=== PATIENT | female | born 1975 | race Two or more races ===

== ENCOUNTER → 2017-02-09 | Outpatient (CLI) | payer BC ==
--- NOTE | 2017-02-09 13:16 | US ---
EXAMINATION TYPE: US thyroid st tissue head/neck DATE OF EXAM: 02/09/2017 COMPARISON: NONE CLINICAL HISTORY: E07.9 Disorder of thyroid, unspecified. Pt states possible thyroid enlargement felt by physician GLAND SIZE: Right Lobe: 6.1 x 1.9 x 1.8 cm Overall Parenchyma: heterogenous Left Lobe: 5.1 x 1.9 x 1.9 cm Overall Parenchyma: heterogeneous Isthmus Thickness: 0.4 cm NODULES RIGHT: # of nodules measured on right: 0 LEFT: # of nodules measured on left: 1 1. 1.9 X 1.5 x 1.3 cm isoechoic solid nodule at the lower pole with well-defined margins;This nodul e is wider than tall and shows intranodular vascularity. Prior size: No prior ISTHMUS: # of nodules measured in the isthmus: 0 Bilateral neck scanned, no evidence of lymphadenopathy. Enlarged, heterogeneous thyroid with nodule o n Left IMPRESSION: 1. There is a 1.9 cm solid nodule left lobe thyroid. 2. Correlate for thyroiditis and thyromegaly.
== END | disposition home or self-care (01) ==
LOC: RADUSWWP 12:52
PROVIDERS: ATTEND Family Medicine
DX: E04.1 Nontoxic single thyroid nodule (principal)
CPT/HCPCS: 76536

== ENCOUNTER → 2017-03-15 | Outpatient (CLI) | payer BC ==
--- NOTE | 2017-03-16 11:35 | NM ---
EXAMINATION TYPE: NM thyroid image w uptake DATE OF EXAM: 03/16/2017 COMPARISON: NONE HISTORY: Thyroid nodule TECHNIQUE: After the intravenous administration of 10.88 mCi Tc 99m Sodium Pertechnetate, thyroid susana ging is performed 10 minutes post injection. Thyroid iodine uptake is calculated after the oral admin istration of 16.7 uCi I-131 capsule. FINDINGS: There is normal distribution of activity throughout the gland. The 4 hour iodine uptake is calculated at 13.9% (normal range 8-14%). The 24-hour iodine uptake is calculated at 30.5% (normal r alicja 15-35%). Scintigraphic evaluation of the thyroid gland demonstrates a cold defect lower pole left thyroid lobe which corresponds to the sonographic abnormality. Tissue diagnosis is recommended. Thyroid lobes are otherwise homogeneous. IMPRESSION: 1. 4 and 24-hour uptake is within normal range. 2. Cold defect lower pole left thyroid lobe. Biopsy is recommended.
== END | disposition home or self-care (01) ==
LOC: RADNMMAIN 10:34
PROVIDERS: ATTEND Family Medicine
DX: E04.1 Nontoxic single thyroid nodule (principal)
CPT/HCPCS: 78014; A9528; A9512

== ENCOUNTER → 2017-11-28 | Outpatient (CLI) | payer BC ==
--- NOTE | 2017-11-29 07:48 | MM ---
Reason for exam: screening (asymptomatic). Baseline mammogram. History: Family history of breast cancer in aunt. Took hormonal contraceptives beginning at age 21. Physical Findings: Nurse did not find any significant physical abnormalities on exam. MG 3D Screening Mammo W/Cad Bilateral CC and MLO view(s) were taken. The breast tissue is heterogeneously dense. This may lower the sensitivity of mammography. Focal asymmetry left upper quadrant, probably benign. Short term follow up recommended. These results were verbally communicated with the patient and result sheet given to the patient on 11/28/17. ASSESSMENT: Probably benign, BI-RAD 3 RECOMMENDATION: Follow-up diagnostic mammogram of the left breast in 6 months.
== END | disposition home or self-care (01) ==
LOC: RADMAMWWP 15:49
PROVIDERS: ATTEND Obstetrics & Gynecology
DX: Z12.31 Encounter for screening mammogram for malignant neoplasm of breast (principal)
CPT/HCPCS: 77063; 77067

== ENCOUNTER → 2018-06-07 | Outpatient (CLI) | payer BC ==
--- NOTE | 2018-06-07 14:27 | MM ---
Reason for exam: follow-up at short interval from prior study. Last mammogram was performed 6 months ago. History: Family history of breast cancer in aunt. Took hormonal contraceptives beginning at age 21. Physical Findings: Nurse did not find any significant physical abnormalities on exam. MG 3D Diag Mammo W/Cad LT CC and MLO view(s) were taken of the left breast. Prior study comparison: November 28, 2017, bilateral MG 3d screening mammo w/cad. The breast tissue is heterogeneously dense. This may lower the sensitivity of mammography. Asymmetric breast tissue left outer quadrant is stable. These results were verbally communicated with the patient and result sheet given to the patient on 06/07/18. ASSESSMENT: Negative, BI-RAD 1 RECOMMENDATION: Return to routine screening mammogram schedule for both breasts. Back on schedule.
== END | disposition home or self-care (01) ==
LOC: RADMAMWWP 13:15
PROVIDERS: ATTEND Obstetrics & Gynecology
DX: R92.8 Other abnormal and inconclusive findings on diagnostic imaging of breast (principal)
CPT/HCPCS: 77061; 77065

== ENCOUNTER → 2019-08-29 | Outpatient (CLI) | payer BC ==
--- NOTE | 2019-09-02 09:37 | MM ---
Reason for exam: screening (asymptomatic). Last mammogram was performed 1 year and 3 months ago. History: Family history of breast cancer in aunt. Took hormonal contraceptives beginning at age 21. Physical Findings: A clinical breast exam by your physician is recommended on an annual basis and results should be correlated with mammographic findings. MG 3D Screening Mammo W/Cad Bilateral CC and MLO view(s) were taken. Prior study comparison: June 07, 2018, left breast MG 3d diag mammo w/cad LT. November 28, 2017, bilateral MG 3d screening mammo w/cad. The breast tissue is heterogeneously dense. This may lower the sensitivity of mammography. Enlarging 1.8cm nodule 8 o'clock central posterior right breast. 3D images suggest low density with circumscribed margins. ASSESSMENT: Incomplete: need additional imaging evaluation, BI-RAD 0 RECOMMENDATION: Special view mammogram and ultrasound of the right breast. (3D) [facility] will attempt to contact patient to return for supplemental views and ultrasound.
== END | disposition home or self-care (01) ==
LOC: RADMAMWWP 13:13
PROVIDERS: ATTEND Family Medicine
DX: Z12.31 Encounter for screening mammogram for malignant neoplasm of breast (principal)
CPT/HCPCS: 77063; 77067

== ENCOUNTER → 2019-09-10 | Outpatient (CLI) | payer BC ==
--- NOTE | 2019-09-10 10:55 | MM ---
Reason for exam: additional evaluation requested from abnormal screening. Last mammogram was performed less than 1 month ago. History: Family history of breast cancer in aunt. Took hormonal contraceptives beginning at age 21. Physical Findings: Nurse did not find any significant physical abnormalities on exam. MG 3D Work Up W/Cad RT Spot compression CC, spot compression MLO, and LM view(s) were taken of the right breast. Prior study comparison: August 29, 2019, bilateral MG 3d screening mammo w/cad. June 07, 2018, left breast MG 3d diag mammo w/cad LT. The breast tissue is heterogeneously dense. This may lower the sensitivity of mammography. 1.4cm mass appears inferior on LM and lateral on the screening. These results were verbally communicated with the patient and result sheet given to the patient on 09/10/19. ASSESSMENT: Incomplete: need additional imaging evaluation, BI-RAD 0 RECOMMENDATION: Ultrasound of the right breast. (lower outer quadrant)
--- NOTE | 2019-09-10 10:56 | USB ---
Reason for exam: additional evaluation requested from abnormal screening. History: Family history of breast cancer in aunt. Took hormonal contraceptives beginning at age 21. US Breast Workup Limited RT Technologist: Siena Griffin Right limited breast ultrasound including focal area of concern, retroareolar and axilla demonstrates a 1.3 x 1.0 x 0.4cm oval, cystic lesion at 8 o'clock, corresponds to mammographic finding. These results were verbally communicated with the patient and result sheet given to the patient on 09/10/19. ASSESSMENT: Benign, BI-RAD 2 RECOMMENDATION: Return to routine screening mammogram schedule for both breasts.
== END | disposition home or self-care (01) ==
LOC: RADMAMWWP 08:54
PROVIDERS: ATTEND Family Medicine
DX: R92.8 Other abnormal and inconclusive findings on diagnostic imaging of breast (principal)
CPT/HCPCS: 77061; 77065

== ENCOUNTER → 2020-11-04 | Outpatient (CLI) | payer BC ==
--- NOTE | 2020-11-04 13:26 | MM ---
Reason for exam: additional evaluation requested from prior study. Last mammogram was performed 1 year and 2 months ago. History: Took hormonal contraceptives beginning at age 21. Physical Findings: Nurse did not find any significant physical abnormalities on exam. MG 3D Diag Mammo W/Cad ASHUTOSH Bilateral CC and MLO view(s) were taken. Prior study comparison: September 10, 2019, right breast MG 3d work up w/cad RT. August 29, 2019, bilateral MG 3d screening mammo w/cad. The breast tissue is heterogeneously dense. This may lower the sensitivity of mammography. There is chronic nodularity in the right breast. Left upper outer quadrant focal asymmetry is unchanged. These results were verbally communicated with the patient and result sheet given to the patient on 11/04/20. ASSESSMENT: Incomplete: need additional imaging evaluation, BI-RAD 0 RECOMMENDATION: Ultrasound of the right breast. (as ordered)
--- NOTE | 2020-11-04 13:27 | USB ---
Reason for exam: additional evaluation requested from prior study. History: Took hormonal contraceptives beginning at age 21. US Breast Limited RT Right limited breast ultrasound including focal area of concern, retroareolar and axilla demonstrates no cystic or solid lesion seen. Scanned 3-8 o'clock. These results were verbally communicated with the patient and result sheet given to the patient on 11/04/20. ASSESSMENT: Benign, BI-RAD 2 RECOMMENDATION: Routine screening mammogram of both breasts in 1 year. Manage on a clinical basis with regard to any suspicious palpable.
== END | disposition home or self-care (01) ==
LOC: RADMAMWWP 08:50
PROVIDERS: ATTEND Family Medicine
DX: N63.10 Unspecified lump in the right breast, unspecified quadrant (principal); R92.8 Other abnormal and inconclusive findings on diagnostic imaging of breast
CPT/HCPCS: 77062; 77066

== ENCOUNTER → 2022-03-31 | Outpatient (CLI) | payer BC ==
--- NOTE | 2022-04-01 08:46 | MM ---
Reason for Exam: Screening (asymptomatic). Last mammogram was performed 1 year(s) and 5 month(s) ago. Patient History: Menarche at age 14. First Full-Term at age 24. Hormonal Contraceptives, from age 21 until age 38. Last menstrual period: 03/16/2022 Risk Values: Radha 5 year model risk: 0.7%. NCI Lifetime model risk: 8.7%. Prior Study Comparison: 08/29/2019 Bilateral Screening Mammogram, [facility]. 09/10/2019 Right Diagnostic Mammogram, [facility]. 11/04/2020 Bilateral Diagnostic Mammogram, [facility]. Tissue Density: The breast tissue is heterogeneously dense. This may lower the sensitivity of mammography. Findings: Analyzed By CAD. Single benign-appearing round calcification in the right breast is redemonstrated. There is no suspicious group of microcalcifications or new suspicious mass in either breast. Overall Assessment: Benign, BI-RAD 2 Management: Screening Mammogram of both breasts in 1 year. A clinical breast exam by your physician is recommended on an annual basis and results should be correlated with mammographic findings. Electronically signed and approved by: Mikal Aguirre M.D.
== END | disposition home or self-care (01) ==
LOC: RADMAMWWP 07:13
PROVIDERS: ATTEND Family Medicine
DX: Z12.31 Encounter for screening mammogram for malignant neoplasm of breast (principal); R92.1 Mammographic calcification found on diagnostic imaging of breast
CPT/HCPCS: 77063; 77067

== ENCOUNTER → 2022-08-09 | Outpatient (CLI) | payer MEDICAID, BC ==
--- NOTE | 2022-08-09 19:12 | MR ---
EXAMINATION TYPE: MR shoulder RT wo con DATE OF EXAM: 08/09/2022 COMPARISON: None. HISTORY: Rt shoulder pain, injury 2 weeks ago. TECHNIQUE: Multiplanar, multisequence imaging of the right shoulder is performed without contrast. FINDINGS: Rotator Cuff: Distal supraspinatus and infraspinatus tendons are intact. Rotator cuff muscle bulk is preserved. Acromioclavicular Joint: Mild to moderate capsular hypertrophy. Mild narrowing. Type II downsloping a cromion noted with loss of underlying fat plane coronal image 17 and sagittal image 9. Glenohumeral Joint: Small joint effusion. No significant spurring. Labrum: The labrum appears grossly intact given limitation of non-arthrogram study. Biceps Tendon: The long head of biceps is in normal location within bicipital groove. Bone marrow signal: Subchondral cystic change involving the lateral aspect of the superior humeral he ad and rotator cuff insertion.. Other: No additional significant abnormality is appreciated. IMPRESSION: No rotator cuff or labral tear is seen. There is type 2 downsloping acromion with suggest ion of underlying impingement. Correlate clinically.
== END | disposition home or self-care (01) ==
LOC: RADMRIMAIN 17:24
PROVIDERS: ATTEND Physician Assistant
DX: S43.91XA Sprain of unspecified parts of right shoulder girdle, initial encounter (principal); S46.001A Unspecified injury of muscle(s) and tendon(s) of the rotator cuff of right shoulder, initial encounter; M75.41 Impingement syndrome of right shoulder

== ENCOUNTER → 2022-12-20 | Outpatient (CLI) | payer BC, MEDICAID ==
[2022-12-20 11:06] LABS: Basophils # (A) 0.04 X 10*3/uL (0.00-0.10); Basophils % (A) 0.6 %; Eosinophils # (A) 0.13 X 10*3/uL (0.04-0.35); Eosinophils % (A) 2.1 %; HCT 37.2 % (37.2-46.3); HGB 11.5 g/dL (12.0-15.0); Immature Grans, Automated 0.3 %; Lymphocytes # (A) 2.12 X 10*3/uL (0.90-5.00); Lymphocytes % (A) 33.8 %; MCH 25.4 pg (27.0-32.0); MCHC 30.9 g/dL (32.0-37.0); MCV 82.1 fL (80.0-97.0); Mean Platelet Volume 10.7 fL (9.5-12.2); Monocytes # (A) 0.38 X 10*3/uL (0.20-1.00); Monocytes % (A) 6.1 %; NRBC Per 100 WBC 0 /100 WBCS (0.0-0.0); Neutrophils # (A) 3.59 X 10*3/uL (1.80-7.70); Neutrophils % (A) 57.1 %; Platelet Count 313 X 10*3/uL (140-440); RBC 4.53 X 10*6/uL (4.10-5.20); RDW 14.8 % (11.5-14.5); WBC 6.28 X 10*3/uL (4.50-10.00)
[2022-12-20 12:40] LABS: ALT 10 U/L (8-44); AST 15 U/L (13-35); Albumin 3.9 g/dL (3.8-4.9); Albumin/Globulin Ratio 1.35 (1.60-3.17); Alkaline Phosphatase 93 U/L (41-126); BUN/Creat Ratio 10.86 Ratio (12.00-20.00); Blood Urea Nitrogen 10.1 mg/dL (9.0-27.0); Calcium 8.5 mg/dL (8.7-10.3); Carbon Dioxide 23.1 mmol/L (20.0-27.5); Chloride 106 mmol/L (96-109); Chol/HDL Ratio 2.97 Ratio; Globulin 2.9 g/dL (1.6-3.3); Glucose 103 mg/dL (70-110); LDL Cholesterol,Calculated 72.1 mg/dL (0.0-131.0); Non-African American GFR(CKD) 74.2 (60.0-200.0); Sodium 140 mmol/L (135-145); Total Protein 6.7 g/dL (6.2-8.2); VLDL Calculation 19.36 mg/dL (5.00-40.00)
== END | disposition home or self-care (01) ==
LOC: LABWHC1 07:22
PROVIDERS: ATTEND Family Medicine
DX: Z00.00 Encounter for general adult medical examination without abnormal findings (principal); D50.9 Iron deficiency anemia, unspecified; E78.49 Other hyperlipidemia; E07.9 Disorder of thyroid, unspecified; N95.9 Unspecified menopausal and perimenopausal disorder; E53.8 Deficiency of other specified B group vitamins; E55.9 Vitamin D deficiency, unspecified; R73.03 Prediabetes
CPT/HCPCS: 36415; 80053; 80061; 82306; 82607; 83036; 84403; 84439; 84443; 85025